=== PATIENT | male | born 1980 ===

== ENCOUNTER → 2020-12-01 | Outpatient (CLI) | payer OTHER ==
[~2020-12-01] MED LIST: CLARITIN 1010 MG/TAB PO; GLUCOPHAGE500 MG/TAB PO; IMITREX100 MG PO; PRIL40 PO; TOPAMAX 25MG25 M1 PO; ZOCOR 20MG20 MG PO
== END ==
LOC: MHCPAIN 09:22
DX: M25.561 Pain in right knee (principal); M25.562 Pain in left knee; M25.571 Pain in right ankle and joints of right foot; M25.572 Pain in left ankle and joints of left foot; M53.3 Sacrococcygeal disorders, not elsewhere classified; G89.29 Other chronic pain
CPT/HCPCS: G0463